=== PATIENT | female | born 1965 | race Caucasian/White ===

== ENCOUNTER 2022-11-13 09:52 | Day surgery (SDC) | payer BC ==
[~2022-11-13 09:52] MED LIST: Midazolam 1 MG/ML 2 ML SDV ONE; fentaNYL 50 MCG/ML SDV ONE
[2022-11-13] MEDS ORDERED: Sodium Chloride 0.9% 1,000 ML IV SCH (10:45)
[2022-11-13] MEDS ORDERED: Propofol 200 MG/20 ML SDV ONE ×2 (13:15→13:30)
== END 2022-11-13 15:00 | disposition other institution (70) ==
LOC: JP.SDS 09:52
PROVIDERS: ATTEND Surgery
DX: Z12.11 Encounter for screening for malignant neoplasm of colon (principal); D12.3 Benign neoplasm of transverse colon; Z80.0 Family history of malignant neoplasm of digestive organs; D12.4 Benign neoplasm of descending colon
CPT/HCPCS: 45380; 45385; J2250; J2704; J3010; J7030; 88305